=== PATIENT | female | born 1975 | race Caucasian/White ===

== ENCOUNTER 2016-11-27 07:02 | Day surgery (SDC) | payer OTHER ==
[~2016-11-27 07:02] MED LIST: IV START KIT ONE; LACTATED RINGERS 1,000 ML IV SCH; LACTATED RINGERS 1,000 ML ONE; LIDOCAINE 1% 2 ML VIAL ID PRN
[2016-11-27] MEDS ORDERED: MIDAZOLAM HCL 1 MG/ML 2ML VIAL ONE (07:45)
[2016-11-27] MEDS ORDERED: FENTANYL 5 ML ONE (07:46)
[2016-11-27] MEDS ORDERED: SCOPOLAMINE 1.5 MG/72 HR 1 EACH PATCH TD ONE (08:36)
[2016-11-27] MEDS ORDERED: KETAMINE HCL UD SYRINGE 100 MG/2 ML IV ONE (09:02)
[2016-11-27] MEDS ORDERED: PROMETHAZINE HCL 25 MG/ML VIAL ONE (09:15)
[2016-11-27] MEDS ORDERED: PROPOFOL 40 ML IV ONE (09:15)
[2016-11-27] MEDS ORDERED: DEXAMETHASONE SOD PHOS 4 MG/1 ML VIAL ONE (09:22)
[2016-11-27] MEDS ORDERED: ONDANSETRON 4 MG/2ML 2 ML VIAL ONE (09:22)
[2016-11-27] MEDS ORDERED: ROCURONIUM BROMIDE 10 MG/ML DOSE IV ONE (09:23)
[2016-11-27] MEDS ORDERED: SUCCINYLCHOLINE CHL 20 MG/ML DOSE ONE (09:23)
[2016-11-27] MEDS ORDERED: LIDOCAINE 2% (MULTI DOSE) 10 ML VIAL ONE (09:23)
[2016-11-27] MEDS ORDERED: NALOXONE HCL 0.4 MG/ML VIAL IV PRN (09:28)
[2016-11-27] MEDS ORDERED: PROMETHAZINE HCL 25 MG/ML VIAL IM PRN (09:28)
[2016-11-27] MEDS ORDERED: MEPERIDINE 25 MG/ML SYRINGE IV PRN (09:28)
[2016-11-27] MEDS ORDERED: ONDANSETRON 4 MG/2ML 2 ML VIAL IV PRN ×2 (09:28→10:36)
[2016-11-27] MEDS ORDERED: HYDROMORPHONE HCL 1 MG/ML SYRINGE IV PRN ×2 (09:28→10:36)
[2016-11-27] MEDS ORDERED: ATROPINE SULFATE 0.4 MG/1 ML VIAL IV PRN (09:28)
[2016-11-27] MEDS ORDERED: FENTANYL 100 MCG/2 ML VIAL IV PRN (09:28)
[2016-11-27] MEDS ORDERED: LACTATED RINGERS 1,000 ML IV SCH ×2 (09:30→10:36)
[2016-11-27] MEDS ORDERED: PROPOFOL 20 ML IV ONE (09:41)
[2016-11-27] MEDS ORDERED: KETOROLAC TROMETHAMINE 30 MG/ML 1 ML VIAL ONE (09:43)
[2016-11-27] MEDS ORDERED: HYDROMORPHONE HCL 2 MG/ML SYRINGE ONE (09:46)
[2016-11-27] MEDS ORDERED: NEOSTIGMINE METHYLSULFATE 1 MG/ML DOSE ONE (09:50)
[2016-11-27] MEDS ORDERED: GLYCOPYRROLATE 0.2 MG/ML 1ML VIAL ONE (09:50)
[2016-11-27] MEDS ORDERED: KETOROLAC TROMETHAMINE 30 MG/ML 1 ML VIAL IV PRN (10:36)
[2016-11-27] MEDS ORDERED: OXYCODONE HCL 5 MG TABLET PO PRN (10:36)
[2016-11-27] MEDS ORDERED: OXYCODONE HCL 5 MG TABLET ONE (11:04)
--- NOTE | 2016-11-27 11:17 | OP ---
Bernadette Linares DATE OF PROCEDURE: 11/27/2016 SURGEON: Malik Leonardo M.D. PREOPERATIVE DIAGNOSES: 1. Requested sterilization. 2. Menorrhagia. POSTOPERATIVE DIAGNOSES: 1. Requested sterilization. 2. Menorrhagia. OPERATION: Laparoscopic tubal ligation and hysteroscopy. TECHNICAL PROCEDURE: After induction of satisfactory general anesthesia the patient was placed in the supine lithotomy position and prepped and draped in the usual fashion. A Hulka tenaculum was placed in the cervix. An infraumbilical incision was made and the direct laparoscopic sleeve and trocar were introduced under direct vision. The trocar was removed. The laparoscope reintroduced and the pelvic structures visualized. Using the [employer] bipolar coagulating forceps the left Fallopian tube was cauterized in three contiguous areas in the mid isthmic segment of the tube using the White current generator to a power staging of 6. The same procedure was repeated for right Fallopian tube. When hemostasis was assured the laparoscope was removed and the pneumoperitoneum allowed to escape through the sleeve. The sleeve was then removed and the incision closed with interrupted vertical mattress sutures of 4-0 Nylon. Attention was then turned to the hysteroscopy. A weighted speculum was placed in the vagina and the anterior lip of the cervix grasped with a single tooth tenaculum. The cervix was dilated using a progressively larger Ovalles dilators to 27-[place]. The hysteroscope was introduced and this point there was noted to be a fundal perforation therefore, the procedure was terminated. The patient tolerated the procedure well and left the operating room awake and in good condition. There were no complications. Instrument, needle, and sponge counts were correct. Estimated blood loss was less than 5 mL. There were no specimens removed. JOB: [id number]
== END 2016-11-27 12:17 | disposition home or self-care (01) ==
LOC: SDC 07:02
PROVIDERS: ATTEND Obstetrics & Gynecology
PROC: 0U5B8ZZ Destruction of Endometrium, Via Natural or Artificial Opening Endoscopic (ICD-10-PCS; principal; 2016-11-27)
PROC: 0U574ZZ Destruction of Bilateral Fallopian Tubes, Percutaneous Endoscopic Approach (ICD-10-PCS; 2016-11-27)
DX: N92.0 Excessive and frequent menstruation with regular cycle (principal); Z30.2 Encounter for sterilization; E03.9 Hypothyroidism, unspecified